=== PATIENT | male | born 1965 | race Caucasian/White ===

== ENCOUNTER 2019-12-02 17:50 | Inpatient (IN) | payer OTHER ==
[~2019-12-02] VITALS: Ht 172.7 cm; Wt 68.2 kg
[2019-12-02 18:35] LABS: BASOPHILS % (AUTO) 0.7 % (0.0-2.0); EOSINOPHILS % (AUTO) 2.4 % (1.0-6.0); HEMATOCRIT 42.8 % (41-53); HEMOGLOBIN 14.1 g/dL (13.5-17.5); LYMPHOCYTES # (AUTO) 2.5 K/uL (1.0-4.8); LYMPHOCYTES % (AUTO) 25.3 % (22.0-44.0); MEAN CORPUSCULAR HEMOGLOBIN 30.6 pg (26.0-34.0); MEAN CORPUSCULAR VOLUME 93 fL (80-100); MONOCYTES # (AUTO) 0.8 K/uL (0.1-1.0); MONOCYTES % (AUTO) 7.8 % (2.0-9.0); NEUTROPHILS # (AUTO) 6.3 K/uL (1.8-7.7); NEUTROPHILS % (AUTO) 63.8 % (40.0-70.0); PLATELET COUNT (AUTO) 212 K/uL (150-450); RED BLOOD CELL COUNT(AUTO) 4.61 MIL/uL (4.50-5.90); RED CELL DISTRIBUTION WIDTH 14.8 % (11.5-14.5)
[2019-12-02 18:55] LABS: ANION GAP 6 mmol/L (8-16); CALCIUM, TOTAL 8.9 mg/dL (8.8-10.5); CARBON DIOXIDE 29 mmol/L (22-29); CHLORIDE 106 mmol/L (98-107); CREATININE 0.89 mg/dL (0.60-1.30); GLOMERULAR FILTR. RATE CALC > 60 mL/min (>60); GLUCOSE,RANDOM 126 mg/dL (70-110); POTASSIUM 3.6 mmol/L (3.5-5.1); SODIUM SERUM 141 mmol/L (136-145); UREA NITROGEN, BLOOD 15 mg/dL (7-18)
[2019-12-02 19:00] LABS: ALANINE AMINOTRANSFERASE 23 U/L (12-78); ALBUMIN 3.2 g/dL (3.4-5.0); ALKALINE PHOSPHATASE 80 U/L (46-116); ASPARTATE AMINOTRANSFERASE 12 U/L (15-37); BILIRUBIN,TOTAL 0.3 mg/dL (0.1-1.0); TOTAL PROTEIN, SERUM 6.6 g/dL (6.4-8.2)
[2019-12-02] MEDS ORDERED: TUBERCULIN, PURIFIED PROTEIN DERIVATIVE 5 TU/0.1 ML SYRINGE ID ONE (19:30)
[2019-12-02] MEDS ORDERED: MAGNESIUM HYDROXIDE SUSPENSION 30 ML UDCUP PO PRN (19:30)
[2019-12-02 20:07] VITALS: BP 149/85
[2019-12-03 00:42] VITALS: BP 140/68
[2019-12-03 05:53] VITALS: BP 151/88
[2019-12-03] MEDS: ACETAMINOPHEN 325 MG TABLET PO PRN ×2 (06:18→07:50)
[2019-12-03 07:25] VITALS: BP 145/78
[2019-12-03 20:17] VITALS: BP 147/75
[2019-12-04] MEDS ORDERED: SODIUM CHLORIDE 3% 15 ML NEB SOLUTION NEB ONE ×2 (00:36→21:13)
[2019-12-04] MEDS: ACETAMINOPHEN 325 MG TABLET PO PRN ×2 (06:49→20:30)
[2019-12-04 08:40] VITALS: BP 145/69
[2019-12-04 09:20] LABS: HIV 1-2 SCREEN 4TH GEN W/RFLX Non Reactive (Non Reactive)
[2019-12-04 16:26] VITALS: BP 169/84
[2019-12-04 20:45] VITALS: BP 161/79
[2019-12-05 08:06] VITALS: BP 153/72
[2019-12-05] MEDS: GABAPENTIN 100 MG CAPSULE PO SCH ×2 (11:26→20:31)
[2019-12-05 13:09] LABS: QUANTIFERON, TB GOLD PLUS Negative (Negative)
[2019-12-05 15:44] VITALS: BP 148/72
[2019-12-05 20:55] VITALS: BP 153/74
[2019-12-05] MEDS: ACETAMINOPHEN 325 MG TABLET PO PRN (21:08)
[2019-12-06 07:54] VITALS: BP 134/76
[2019-12-06] MEDS: GABAPENTIN 100 MG CAPSULE PO SCH ×2 (08:28→21:48)
[2019-12-06 19:56] VITALS: BP 152/72
[2019-12-07 08:00] VITALS: BP 145/71
[2019-12-07] MEDS: GABAPENTIN 100 MG CAPSULE PO SCH ×2 (08:11→20:34)
[2019-12-07 19:50] VITALS: BP 138/62
[2019-12-08 05:12] VITALS: BP 147/74
[2019-12-08 08:16] VITALS: BP 155/83
[2019-12-08] MEDS: GABAPENTIN 100 MG CAPSULE PO SCH ×2 (08:32→21:00)
[2019-12-08 16:02] VITALS: BP_SYST 117; BP_SYST 147; BP_DIAS 76
[2019-12-09 04:54] VITALS: BP 139/74
[2019-12-09 07:49] VITALS: BP 140/60
[2019-12-09] MEDS: GABAPENTIN 100 MG CAPSULE PO SCH (08:49)
== END 2019-12-09 14:07 | DRG 206 ==
LOC: EMS 18:02 → 6S 19:27
PROVIDERS: ADMIT Internal Medicine; ATTEND Internal Medicine
DX: R91.1 Solitary pulmonary nodule (principal); R91.8 Other nonspecific abnormal finding of lung field; F17.200 Nicotine dependence, unspecified, uncomplicated; J44.9 Chronic obstructive pulmonary disease, unspecified; M54.12 Radiculopathy, cervical region
CPT/HCPCS: 71250; 86480; 87015; 87206; 87389; 87556; 87798; 94640; 36415-L1; 36415-TC; 71045-TC